=== PATIENT | female | born 1975 | race Caucasian/White ===

== ENCOUNTER 2024-09-11 11:22 | Day surgery (SDC) | payer MEDICARE, OTHER ==
[2024-09-11 12:10] VITALS: TEMP 98
[2024-09-11] MEDS: IV FLUID CONTINUATION 1,000 ML IV ONE (12:20)
[2024-09-11] MEDS: LACTATED RINGERS 1,000 ML IV SCH (12:23)
[2024-09-11] MEDS ORDERED: PROPOFOL 10 MG/ML 20 ML VIAL IV ONE (13:08)
[2024-09-11] MEDS: ONDANSETRON 4 MG/2 ML VIAL IVP STA (13:38)
[2024-09-11 13:53] VITALS: RESP 16
[2024-09-11 13:55] VITALS: BP 117/70; PULSE 65
--- NOTE | 2024-09-11 14:13 | P.OP ---
Date of Procedure: 09/11/24 Preoperative Diagnosis: 1. GERD 2. Screening Colonoscopy Postoperative Diagnosis: 1. Gastritis 2. Normal Colon Procedure(s) Performed: 1. EGD with Biopsy 2. Colonoscopy Anesthesia: MAC Surgeon: Gino Suggs Pathology: other (Antral Biopsies) Condition: stable Disposition: PACU Description of Procedure: Informed consent was obtained. The procedure, its risks, benefits, and alternatives were discussed. The patient was placed in the left lateral decubitus position. The patient was sedated. The endoscope was inserted into the oropharynx and guided under direct vision into the esophagus, stomach, and duodenum. The duodenal bulb and second portion were unremarkable. The scope was withdrawn to the stomach and retroflexed. There was no increased fluid, food or secretions in the upper gastrointestinal tract. There was very minimal, nonspecific, patchy antral erythema. Biopsies were obtained for Helicobacter pylori. No erosions or ulcers. The scope was withdrawn to the esophagus. No Barretts or esophagitis. Digital rectal exam was performed revealing normal sphincter tone and no external hemorrhoids. The Pentax video colonoscope was inserted into rectum and advanced under direct visualization, without difficulty, to the cecum, where the cecal strap, appendiceal orifice, and the ileocecal valve were identified. The quality of the preparation was good. The colonoscope was then withdrawn while carefully examining the mucosa. The colonic mucosa appeared normal with normal vascularity and haustral markings. No masses, polyps, AVM/s or diverticula were seen. On retroflexed view in the rectum, there are small internal hemorrhoids. The endoscope was removed and the procedure terminated. The patient tolerated the procedure well without complications.
== END 2024-09-11 14:24 ==
LOC: ORWHC2ENDO 11:22
PROVIDERS: ATTEND Surgery
DX: Z12.11 Encounter for screening for malignant neoplasm of colon (principal); K29.50 Unspecified chronic gastritis without bleeding; K21.9 Gastro-esophageal reflux disease without esophagitis; K64.8 Other hemorrhoids; I26.99 Other pulmonary embolism without acute cor pulmonale; H33.20 Serous retinal detachment, unspecified eye; Z87.891 Personal history of nicotine dependence; Z88.8 Allergy status to other drugs, medicaments and biological substances; Z88.6 Allergy status to analgesic agent; Z79.899 Other long term (current) drug therapy
CPT/HCPCS: 88305; 43239; J2405; J2704; G0121

== ENCOUNTER → 2024-09-30 | Outpatient (CLI) | payer MEDICARE, OTHER ==
--- NOTE | 2024-09-30 08:26 | US ---
EXAMINATION TYPE: US abdomen complete DATE OF EXAM: 09/30/2024 COMPARISON: NONE CLINICAL INDICATION: Female, 48 years old with history of R14.0 ABDOMINAL DISTENSION (GASEOUS); bloat ing and digestion issues TECHNIQUE: Grayscale and color Doppler imaging of the abdomen was performed. FINDINGS: EXAM MEASUREMENTS: Liver Length: 18.5 cm Gallbladder: Surgically absent CBD: 5.8 mm, color Doppler imaging was utilized to isolate the common bile duct for measurement. Spleen: 8.3 cm Right Kidney: 9.1 x 3.9 x 4.1 cm Left Kidney: 9.7 x 4.9 x 5.7 cm SHAREHOLDER NOTES: habitus and bowel gas limits exam Pancreas: Only a small portion of the pancreatic neck could be seen. Remainder is obscured by bowel g as shadowing. Liver: Possible minimal increased echogenicity. No focal lesion. Gallbladder: surgically absent Evidence for sonographic Holcomb's sign: no CBD: wnl Spleen: wnl Right Kidney: wnl, No hydronephrosis, calculi or masses seen Left Kidney: wnl, No hydronephrosis, calculi or masses seen Upper IVC: wnl Abd Aorta: wnl IMPRESSION: 1. Borderline caliber bile duct at 5.8 mm, acceptable given postcholecystectomy status. 2. Mild hepatomegaly at 18.5 cm. There may be very mild fatty infiltration. [facility], Workstation: [email or web address], 09/30/2024 8:24 AM
== END | disposition home or self-care (01) ==
LOC: RADUSWWP 06:54
PROVIDERS: ATTEND Family Medicine
DX: R16.0 Hepatomegaly, not elsewhere classified (principal); R14.0 Abdominal distension (gaseous)
CPT/HCPCS: 76700